=== PATIENT | male | born 1990 | race Asian ===

== ENCOUNTER 2022-12-10 18:31 | Emergency (ER) | payer OTHER ==
[~2022-12-10] VITALS: Ht 175.3 cm; Wt 79.5 kg
[2022-12-10] MEDS ORDERED: fentaNYL/PF 50MCG/1 ML 2ML syringe IV ONE (18:45)
[2022-12-10] MEDS ORDERED: iohexol 350MG/ML 100ml bottle IV ONE (18:48)
[2022-12-10] MEDS ORDERED: iohexol 350 MG/ML 50ML vial IV ONE (18:48)
[2022-12-10] MEDS ORDERED: ondansetron/PF 4mg/2ml inj IV STA (18:52)
[2022-12-10 19:17] LABS: BASOPHILS % (AUTO) 0.5 % (0-1); EOSINOPHILS # (AUTO) 0.4 X10'3 (0-0.9); EOSINOPHILS % (AUTO) 4.4 % (0-6); HEMATOCRIT 42.6 % (42.0-52.0); HEMOGLOBIN 14.5 g/dl (14.0-17.9); LYMPHOCYTES % (AUTO) 30.2 % (21-51); MEAN CORPUSCULAR HEMOGLOBIN 31.6 PG (27.0-31.0); MEAN CORPUSCULAR HGB CONC 34.1 g/dL (33.0-36.5); MEAN CORPUSCULAR VOLUME 92.7 FL (78-98); MONOCYTES # (AUTO) 0.6 X10'3 (0-0.9); NEUTROPHILS # (AUTO) 5.9 X10'3 (1.8-7.7); NEUTROPHILS % (AUTO) 58.9 % (42-75); PLATELET COUNT 246 X10'3 (140-440); RED BLOOD COUNT 4.59 X10'6 (4.70-6.10); RED CELL DISTRIBUTION WIDTH 12.9 % (11.5-14.5); WHITE BLOOD COUNT 10.1 X10'3 (4.5-11.0)
[2022-12-10 19:28] LABS: APTT 23 SECONDS (22-32); PROTHROMBIN TIME 11.1 SECONDS (9.0-12.0)
[2022-12-10 19:57] LABS: ALANINE AMINOTRANSFERASE 21 U/L (12-78); ALBUMIN 4.5 G/DL (3.4-5.0); ALBUMIN/GLOBULIN RATIO 1.3 (1.1-1.5); ALKALINE PHOSPHATASE 70 IU/L (46-116); ANION GAP 10 (8-16); ASPARTATE AMINO TRANSFERASE 20 U/L (10-37); BILIRUBIN,TOTAL 0.4 MG/DL (0.1-1.0); BLOOD UREA NITROGEN 15 MG/DL (7-18); BUN/CREATININE RATIO 10.6 (10.0-20.0); CALCIUM 9.7 MG/DL (8.5-10.1); CHLORIDE 100 MMOL/L (99-107); CREATINE KINASE 190 U/L (39-308); CREATININE 1.41 MG/DL (0.60-1.10); GLUCOSE 149 MG/DL (70-104); LIPASE 93 U/L (73-393); SODIUM 138 MMOL/L (135-145); TOTAL CARBON DIOXIDE 27.7 MMOL/L (24-32); TOTAL PROTEIN 8.1 G/DL (6.4-8.2); eCRCL 77 ML/MIN; eGFR 59 ML/MIN
[2022-12-10 20:18] LABS: CKMB RELATIVE INDEX 0.3 RATIO (0-2.5)
[2022-12-10 20:26] LABS: POTASSIUM 2.9 MMOL/L (3.5-5.1)
[2022-12-10 20:40] LABS: CREATINE KINASE MB 0.6 ng/ml (0.3-3.6); ETHANOL < 10 MG/DL (<10)
--- NOTE | 2022-12-10 20:59 | NUR ---
pt to ct for facial bone/tissue scan. provider aware pt c/o dizziness when he changed position from laying to sitting declined to use urinal sitting he endorsed he was able to stand while voiding this rn sba while pt urinated via urinal after voiding pt sat down began to vomit approx 300ml fluid. provider notified no new orders at present time.
[2022-12-10 21:02] LABS: BILIRUBIN,URINE NEGATIVE (Neg); CLARITY,URINE CLEAR (Clear); COLOR,URINE YELLOW (Yellow); GLUCOSE, URINE NEGATIVE (Neg); KETONES,URINE NEGATIVE (Neg); LEUKOCYTE ESTERASE ,URINE NEGATIVE (Neg); NITRITES, URINE NEGATIVE (Neg); OCCULT BLOOD,URINE NEGATIVE (Neg); PROTEIN,URINE NEGATIVE (Neg); UROBILINOGEN,URINE 0.2 E.U/dL (0.2-1.0)
[2022-12-10 21:24] LABS: UA COLLECTION TYPE NON-SPECIFIED
--- NOTE | 2022-12-10 21:40 | NUR ---
pt back from ct c/o increased pain in left jaw provider notified waiting on medication order [id number] [phone] [id number]
[2022-12-10] MEDS ORDERED: HYDROmorphone 1 mg/ml syringe IV ONE (22:00)
--- NOTE | 2022-12-10 23:12 | NUR ---
report given to Yusuf RAMIREZ [facility]. ems at bedside waiting for provider to complete suturing L ear laceration. report given to [employer] hernán 127.
[2022-12-10 23:18] VITALS: BP 138/69; PULSE 77; RESP 25; TEMP 98.9; O2SAT 99
[2022-12-10] MEDS ORDERED: LORazepam 2 mg/ml vial IV ONE (23:25)
--- NOTE | 2022-12-10 23:32 | NUR ---
pt medicated with 0.5 mg iv ativan for active vomiting prior to transport to [facility] emergency [facility]. pt exited unit via gurney with ems crew.
== END 2022-12-11 03:59 | disposition short-term general hospital (02) ==
LOC: ER 18:31
DX: S06.0X1A Concussion with loss of consciousness of 30 minutes or less, initial encounter (principal); S01.311A Laceration without foreign body of right ear, initial encounter; E87.6 Hypokalemia; R11.10 Vomiting, unspecified; J45.909 Unspecified asthma, uncomplicated; F17.200 Nicotine dependence, unspecified, uncomplicated; Z88.2 Allergy status to sulfonamides; V86.55XA Driver of 3- or 4- wheeled all-terrain vehicle (ATV) injured in nontraffic accident, initial encounter; Y93.89 Activity, other specified; Y92.89 Other specified places as the place of occurrence of the external cause; Y99.8 Other external cause status
CPT/HCPCS: 12011; 36415; 70450; 70486; 70496; 70498; 71250; 72125; 74176; 80053; 80320; 81003; 82550; 82553; 83690; 83874; 84484; 85025; 85610; 85730; 86885; 86900; 86901; 93005; 96374; 96375; 99291; J1170; J2060; J2405; J3010; J3490; Q9967; A6449